=== PATIENT | female | born 1985 | race Two or more races ===

== ENCOUNTER 2024-06-10 10:45 | Inpatient (IN) | payer OTHER ==
[~2024-06-10] VITALS: Ht 165.1 cm; Wt 107.5 kg
[2024-06-10 13:20] LABS: PARTIAL THROMBOPLASTIN TIME 23.1 SECONDS (22.0-34.0); PROTHROMBIN TIME 10.9 SECONDS (9.0-11.5)
[2024-06-10 13:50] VITALS: BP 150/85
[2024-06-10] MEDS ORDERED: COZAAR25 MG PO (13:51)
[2024-06-23] MEDS ORDERED: CEFAZOLIN SODIUM 1,000 MG VIAL ONE (07:08)
[2024-06-23] MEDS ORDERED: DEXAMETHASONE SODIUM PHOSPHATE 4 MG/ML VIAL ONE (07:12)
[2024-06-23] MEDS ORDERED: Calcium Carbonate 1 TAB TABLET PO SCH (09:54)
[2024-06-23] MEDS ORDERED: TRAMADOL HCL 50 MG TABLET PO SCH (09:55)
[2024-06-23] MEDS ORDERED: ACETAMINOPHEN 500 MG GEL..CAP PO SCH (09:55)
[2024-06-23] MEDS ORDERED: LOSARTAN POTASSIUM 25 MG TABLET PO SCH (09:56)
[2024-06-23] MEDS ORDERED: ENALAPRILAT DIHYDRATE 1.25 MG/ML VIAL IV PRN (10:00)
[2024-06-23] MEDS ORDERED: ONDANSETRON HCL 2 MG/ML VIAL IV PRN (10:00)
[2024-06-23] MEDS ORDERED: MORPHINE SULFATE 4 MG/ML CARTRIDGE IV ONE (10:30)
[2024-06-23] MEDS ORDERED: ONDANSETRON HCL 2 MG/ML VIAL ONE (10:33)
[2024-06-23] MEDS ORDERED: MORPHINE SULFATE 4 MG/ML VIAL IV ONE ×2 (10:35)
[2024-06-23] MEDS ORDERED: ONDANSETRON HCL 2 MG/ML VIAL IV ONE (10:45)
[2024-06-23 11:52] VITALS: BP 122/84; O2SAT 96
[2024-06-23 16:00] VITALS: BP 129/69; O2SAT 96
[2024-06-23] MEDS ORDERED: CYCLOBENZAPRINE HCL 5 MG TABLET PO SCH (17:00)
[2024-06-23] MEDS ORDERED: PANTOPRAZOLE SODIUM 40 MG/VIAL VIAL IV PUSH SCH (21:00)
[2024-06-23 23:38] VITALS: BP 115/64; O2SAT 100
[2024-06-24] MEDS ORDERED: LEVOTHYROXINE SODIUM 175 MCG TABLET PO SCH (09:00)
[2024-06-24 09:01] VITALS: BP 125/83; O2SAT 96
== END 2024-06-24 11:02 | disposition home or self-care (01) | DRG 627 ==
LOC: O/R 06-23 05:55 → SURG 06-23 09:15 → SURH 06-23 09:59 → SURG 06-23 10:45 → SURH 06-24 11:02
PROVIDERS: ADMIT Surgery; ATTEND Surgery
PROC: 0GTK0ZZ Resection of Thyroid Gland, Open Approach (ICD-10-PCS; principal; 2024-06-23 09:15)
DX: C73 Malignant neoplasm of thyroid gland (principal); Z20.822 Contact with and (suspected) exposure to COVID-19